=== PATIENT | male | born 1965 ===

== ENCOUNTER → 2020-07-22 | Outpatient (CLI) | payer BC ==
--- NOTE | 2020-07-23 18:28 | RADIOLOGY REPORT (SQ) ---
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 TECHNIQUE: Noncontrast multiplanar MR imaging. Sequences include wide field of view pelvis and focu sed hip of interest. Fat sensitive, water sensitive, and cartilage sensitive sequences. Specific hip of interest: Left LIMITATIONS: None. FINDINGS: MARROW SIGNAL: Normal, no evidence of replacement, occult fracture or suspicious bone lesi on in the visualized lumbar spine, pelvis and proximal femurs. SPECIFIC HIP OF INTEREST: Small effusion. Loss of the joint space with patchy marrow edema in the s ubchondral bone tracking into the femoral neck. There is patchy acetabular marrow edema with promine nt osteophyte formation. No evidence of fracture or suggestion of AVN. No bursitis. Edema in the p soas muscle tracking along the musculotendinous junction with deep soft tissue regional edema and mil d bursitis. The tendon insertion is intact. OPPOSITE HIP: Similar but less marked degenerative narrowing. Minimal acetabular edema and subchondr al cysts. REMAINDER OF THE OSSEOUS PELVIS: SI joints intact. Mild fluid in the symphysis pubis. Potential sub tle sports hernia with tear of the common rectus/adductor aponeurosis. INTRA- AND EXTRAPELVIC SOFT TISSUES: No intrapelvic mass or free fluid. Bladder normal. No extrapelv ic mass. No inguinal hernia or adenopathy. IMPRESSION: 1. Significant left hip arthropathy looks degenerative. No fracture or AVN detected. 2. Edema in the psoas muscle along the musculotendinous junction likely related to significant strain unless the patient has had steroid recent injection to explain this. Mild associated bursitis. 3. Suspicious for sports hernia. Reading location - IP/workstation name: [email or web address]
== END ==
LOC: RAD 16:18
PROVIDERS: ATTEND Physician Assistant
DX: M24.152 Other articular cartilage disorders, left hip (principal)